=== PATIENT | male | born 1950 | race Two or more races ===

== ENCOUNTER 2020-03-29 05:00 | Day surgery (SDC) | payer OTHER | END 2020-03-29 09:35 | disposition home or self-care (01) | LOC: AMB-ENDOS 05:00 | PROVIDERS: ATTEND Colon & Rectal Surgery | DX: K62.4 Stenosis of anus and rectum (principal); K64.1 Second degree hemorrhoids; Z20.828 Contact with and (suspected) exposure to other viral communicable diseases ==

== ENCOUNTER 2020-04-08 09:46 | Inpatient (IN) | payer OTHER ==
[~2020-04-08] VITALS: Ht 170.2 cm; Wt 73.5 kg
[2020-04-08] MEDS ORDERED: LEVOTHYROXINE25 MCG (09:57)
[2020-04-08] MEDS ORDERED: ENALAPRIL MALEA10 MG (09:57)
[2020-04-11] MEDS ORDERED: MELOXICAM15 MG (16:28)
[2020-04-11] MEDS ORDERED: DORZOLAMIDE-TIM10 ML (16:28)
[2020-04-11] MEDS ORDERED: OMEPRAZOLE20 MG (16:28)
[2020-04-11] MEDS ORDERED: ATORVASTATIN CA20 MG (16:28)
[2020-04-11] MEDS ORDERED: LATANOPROST2.5 ML (16:29)
== END 2020-04-11 18:45 | disposition home or self-care (01) | DRG 379 ==
LOC: ER 09:46 → SURG 16:37 → SEC-K 16:37 → SURG 20:55
PROVIDERS: ADMIT Colon & Rectal Surgery; ATTEND Colon & Rectal Surgery
PROC: BW21YZZ Computerized Tomography (CT Scan) of Abdomen and Pelvis using Other Contrast (ICD-10-PCS; principal; 2020-04-08)
DX: K62.5 Hemorrhage of anus and rectum (principal); K62.4 Stenosis of anus and rectum

== ENCOUNTER 2021-03-28 10:45 | Inpatient (IN) | payer OTHER ==
[~2021-03-28] VITALS: Ht 170.2 cm; Wt 69.4 kg
[~2021-03-28 10:45] MED LIST: ATORVASTATIN CA20 MG; DORZOLAMIDE-TIM10 ML; ENALAPRIL MALEA10 MG; LATANOPROST2.5 ML; LEVOTHYROXINE25 MCG; MELOXICAM15 MG; OMEPRAZOLE20 MG
[2021-03-28] MEDS ORDERED: SYNTHROID112 MCG PO (13:01)
[2021-03-28] MEDS ORDERED: LIPITOR PO (13:01)
[2021-04-02] MEDS ORDERED: ATORVASTATIN CA20 MG (08:23)
[2021-04-02] MEDS ORDERED: TRAM1TAB98 (08:23)
[2021-04-02] MEDS ORDERED: DORZOLAMIDE-TIM10 ML (08:24)
[2021-04-02] MEDS ORDERED: DICLOFENAC SOD100 GM (08:24)
[2021-04-02] MEDS ORDERED: FERROUS SULFAT325 MG (08:24)
[2021-04-02] MEDS ORDERED: ALPHAGAN P5 M2 (08:24)
== END 2021-04-22 14:44 | disposition home or self-care (01) | DRG 654 ==
LOC: SURG 04-01 06:42 → O/R 04-01 06:42 → SURH 04-01 10:45 → SURG 04-01 17:47
PROVIDERS: ADMIT Colon & Rectal Surgery; ATTEND Colon & Rectal Surgery
PROC: 0DTN4ZZ Resection of Sigmoid Colon, Percutaneous Endoscopic Approach (ICD-10-PCS; 2021-04-01)
PROC: 0DTP4ZZ Resection of Rectum, Percutaneous Endoscopic Approach (ICD-10-PCS; 2021-04-01)
PROC: 0D1B4Z4 Bypass Ileum to Cutaneous, Percutaneous Endoscopic Approach (ICD-10-PCS; 2021-04-01)
PROC: 0DB84ZZ Excision of Small Intestine, Percutaneous Endoscopic Approach (ICD-10-PCS; 2021-04-01)
PROC: 0DNW4ZZ Release Peritoneum, Percutaneous Endoscopic Approach (ICD-10-PCS; 2021-04-01)
PROC: 0DN84ZZ Release Small Intestine, Percutaneous Endoscopic Approach (ICD-10-PCS; 2021-04-01)
PROC: 0DJD8ZZ Inspection of Lower Intestinal Tract, Via Natural or Artificial Opening Endoscopic (ICD-10-PCS; 2021-04-01)
PROC: 0TQB4ZZ Repair Bladder, Percutaneous Endoscopic Approach (ICD-10-PCS; principal; 2021-04-01 15:00)
PROC: 4A12X4Z Monitoring of Cardiac Electrical Activity, External Approach (ICD-10-PCS; 2021-04-04)
PROC: 02H633Z Insertion of Infusion Device into Right Atrium, Percutaneous Approach (ICD-10-PCS; 2021-04-04)
DX: N32.1 Vesicointestinal fistula (principal); N99.71 Accidental puncture and laceration of a genitourinary system organ or structure during a genitourinary system procedure; R65.10 Systemic inflammatory response syndrome (SIRS) of non-infectious origin without acute organ dysfunction; K56.7 Ileus, unspecified; I48.20 Chronic atrial fibrillation, unspecified; N17.8 Other acute kidney failure; K92.1 Melena; D64.9 Anemia, unspecified; R53.81 Other malaise; K66.0 Peritoneal adhesions (postprocedural) (postinfection); R41.82 Altered mental status, unspecified; N36.8 Other specified disorders of urethra; K62.4 Stenosis of anus and rectum; K57.30 Diverticulosis of large intestine without perforation or abscess without bleeding; E03.8 Other specified hypothyroidism; E78.5 Hyperlipidemia, unspecified

== ENCOUNTER 2021-09-05 07:39 | Outpatient (CLI) | payer OTHER ==
[~2021-09-05 07:39] MED LIST changes: +ALPHAGAN P5 M2; +DICLOFENAC SOD100 GM; +FERROUS SULFAT325 MG; +LIPITOR PO; +SYNTHROID112 MCG PO; +TRAM1TAB98
== END 2021-09-05 07:45 | disposition home or self-care (01) ==
LOC: RX STUDY 07:39
PROVIDERS: ATTEND Colon & Rectal Surgery
DX: K57.20 Diverticulitis of large intestine with perforation and abscess without bleeding (principal)

== ENCOUNTER → 2021-10-28 | Day surgery (SDC) | payer OTHER | END | disposition home or self-care (01) | LOC: ADM 10-24 13:45 → AMB-ENDOS 05:25 | PROVIDERS: ATTEND Colon & Rectal Surgery | DX: K57.30 Diverticulosis of large intestine without perforation or abscess without bleeding (principal); Z20.822 Contact with and (suspected) exposure to COVID-19; K62.4 Stenosis of anus and rectum; I10 Essential (primary) hypertension; E03.9 Hypothyroidism, unspecified ==

== ENCOUNTER 2021-12-11 07:59 | Outpatient (CLI) | payer OTHER ==
[~2021-12-11] VITALS: Ht 170.2 cm; Wt 69.4 kg
== END 2021-12-11 08:00 | disposition home or self-care (01) ==
LOC: LAB 07:59
PROVIDERS: ATTEND Colon & Rectal Surgery
DX: I10 Essential (primary) hypertension (principal); K57.30 Diverticulosis of large intestine without perforation or abscess without bleeding; K62.4 Stenosis of anus and rectum; K92.1 Melena

== ENCOUNTER 2021-12-12 12:00 | Inpatient (IN) | payer OTHER ==
[2021-12-18] MEDS ORDERED: COMBIGAN EYE DRO5 ML (08:10)
[2021-12-18] MEDS ORDERED: ELIQUIS5 MG (08:10)
[2021-12-18] MEDS ORDERED: LEVOTHYROXINE137 MCG (08:11)
== END 2021-12-22 11:52 | disposition home or self-care (01) | DRG 348 ==
LOC: SURH 12-17 09:31 → O/R 12-17 09:31 → SURH 12-17 10:15
PROVIDERS: ADMIT Colon & Rectal Surgery; ATTEND Colon & Rectal Surgery
PROC: 0DBB4ZZ Excision of Ileum, Percutaneous Endoscopic Approach (ICD-10-PCS; principal; 2021-12-17 10:15)
DX: Z43.2 Encounter for attention to ileostomy (principal); K92.1 Melena; K57.30 Diverticulosis of large intestine without perforation or abscess without bleeding; K62.4 Stenosis of anus and rectum; Z20.822 Contact with and (suspected) exposure to COVID-19

== ENCOUNTER 2023-09-29 06:24 | Day surgery (SDC) | payer OTHER ==
[~2023-09-29 06:24] MED LIST changes: +COMBIGAN EYE DRO5 ML; +ELIQUIS5 MG; +LEVOTHYROXINE137 MCG
[2023-09-29] MEDS ORDERED: ENALAPRILAT DIHYDRATE 2.5 MG/2 ML VIAL IV ONE ×2 (10:00→11:12)
[2023-09-29] MEDS ORDERED: fentaNYL CITRATE 50 MCG/ML AMPUL IV PUSH ONE (12:45)
[2023-09-29] MEDS ORDERED: MIDAZOLAM HCL 2 MG/2 ML VIAL IV ONE (12:45)
[2023-09-29] MEDS ORDERED: DIPHENHYDRAMINE HCL 50 MG/ML VIAL 1ML IV ONE (12:45)
== END 2023-09-29 11:05 | disposition home or self-care (01) ==
LOC: AMB-ENDOS 06:24
PROVIDERS: ATTEND Colon & Rectal Surgery
DX: K62.4 Stenosis of anus and rectum (principal); Z88.8 Allergy status to other drugs, medicaments and biological substances; K64.1 Second degree hemorrhoids

== ENCOUNTER 2024-02-16 05:45 | Day surgery (SDC) | payer OTHER ==
[2024-02-16] MEDS ORDERED: DIPHENHYDRAMINE HCL 50 MG/ML VIAL 1ML IV ONE (13:00)
[2024-02-16] MEDS ORDERED: fentaNYL CITRATE 50 MCG/ML AMPUL IV PUSH ONE (13:00)
[2024-02-16] MEDS ORDERED: MIDAZOLAM HCL 2 MG/2 ML VIAL IV ONE (13:00)
== END 2024-02-16 13:30 | disposition home or self-care (01) ==
LOC: AMB-ENDOS 05:45
PROVIDERS: ATTEND Colon & Rectal Surgery
DX: K62.4 Stenosis of anus and rectum (principal); K57.30 Diverticulosis of large intestine without perforation or abscess without bleeding; K92.1 Melena

== ENCOUNTER 2024-08-03 06:31 | Inpatient (IN) | payer OTHER ==
[~2024-08-03] VITALS: Ht 165.1 cm; Wt 71.2 kg
[2024-08-03] MEDS ORDERED: LIPITOR40 M1 PO (06:38)
[2024-08-03] MEDS ORDERED: SYNTHROID150 MCG PO (06:38)
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
--- NOTE | 2024-08-03 08:39 | NUR ---
SE RECIBE PTE ALERTA ORIENTADO X3.SE TED MUESTRAS DE LABORATORIO USANDO MEDIDAS ASEPTICAS.SE ORIENTA PTE SOBRE OBJETIVO DE [place] MEDICO.PTE MANEJA POR JAKOB FU.
[2024-08-03 08:59] LABS: HEMATOCRIT 39.3 % (39.0-48.0); HEMOGLOBIN 13.4 g/dL (13-16.00); MEAN CELL VOLUME 84.5 fL (80.0-100.00); MEAN CORPUSCULAR HEMOGLOBIN 28.7 pg (27.00-32.0); PLATELET COUNT 142 K/uL (150-450); RED BLOOD COUNT 4.65 M/uL (4.00-6.00); RED CELL DISTRIBUTION WIDTH 16.8 % (11.5-14.5)
[2024-08-03 09:47] LABS: PH,URINE 5.5 (5.0-8.0); URINE APPEARANCE Clear; URINE BILIRRUBIN Negative (NEGATIVE); URINE BLOOD Negative; URINE COLOR Yellow; URINE GLUCOSE Negative (NEGATIVE); URINE KETONE Negative (NEGATIVE); URINE LEUKOCYTE Negative; URINE NITRATE Negative; URINE PROTEIN Negative (NEGATIVE); URINE UROBILINOGEN 0.2 E.U./dl
[2024-08-03 09:50] LABS: URINE BACTERIA 6.1 uL (0.0-1933); URINE EPITHELIAL CELLS 2.3 uL (0.0-38.8); URINE WBC 2.5 uL (0.0-23.2)
[2024-08-03 09:51] LABS: CALCIUM 9.3 mg/dL (8.5-10.1); CREATININE SERUM 1.19 mg/dL (0.70-1.30); GFR 59.92; POTASSIUM 3.66 mEq/L (3.5-5.1)
[2024-08-03 10:25] LABS: URINE RBC 0.4 uL (0.0-20.8)
[2024-08-03 10:42] LABS: AMYLASE 96 U/L (25-115); LIPASE 49 U/L (13-75)
[2024-08-03] MEDS ORDERED: 0.9 % SODIUM CHLORIDE 1,000 ML IV SCH (18:30)
[2024-08-03] MEDS ORDERED: PIPERACILLIN/TAZOBACTAM SODIUM 3.375 GM in 0.9 % SODIUM CHLORIDE 100 ML IV SCH (18:32)
[2024-08-03] MEDS ORDERED: VANCOMYCIN HCL 1,000 MG VIAL IV SCH (18:32)
[2024-08-03] MEDS ORDERED: ACETAMINOPHEN 500 MG GEL..CAP PO PRN (18:45)
[2024-08-03] MEDS ORDERED: MEPERIDINE HCL/PF 25 MG/ML VIAL IM PRN (18:45)
[2024-08-03] MEDS ORDERED: VANCOMYCIN HCL 1,000 MG VIAL ONE (19:06)
[2024-08-03] MEDS ORDERED: PIPERACILLIN/TAZOBACTAM SODIUM 3.375 GM VIAL IV ONE (19:06)
[2024-08-03 20:20] LABS: INR 1.11; PARTIAL THROMBOPLASTIN TIME 25.4 SECONDS (22.0-34.0)
[2024-08-03 21:18] LABS: PH,URINE 5.5 (5.0-8.0); URINE APPEARANCE Clear; URINE BILIRRUBIN Negative (NEGATIVE); URINE BLOOD Negative; URINE COLOR Yellow; URINE GLUCOSE Negative (NEGATIVE); URINE KETONE Negative (NEGATIVE); URINE LEUKOCYTE Negative; URINE NITRATE Negative; URINE PROTEIN Negative (NEGATIVE); URINE UROBILINOGEN 0.2 E.U./dl
[2024-08-03 21:21] LABS: URINE BACTERIA 13.4 uL (0.0-1933); URINE EPITHELIAL CELLS 1.4 uL (0.0-38.8); URINE WBC 2.8 uL (0.0-23.2)
[2024-08-03 21:39] LABS: URINE RBC 1.3 uL (0.0-20.8)
[2024-08-04] VITALS: BP 152/83; O2SAT 99
[2024-08-04] MEDS ORDERED: LEVOTHYROXINE SODIUM 150 MCG TABLET PO SCH (06:00)
[2024-08-04] MEDS ORDERED: FAMOTIDINE/PF 20 MG in 0.9 % SODIUM CHLORIDE 8 ML IV PUSH SCH (09:00)
[2024-08-04] MEDS ORDERED: ATORVASTATIN CALCIUM 40 MG TABLET PO SCH (09:00)
[2024-08-04] MEDS ORDERED: VANCOMYCIN HCL 1,000 MG VIAL ONE (09:14)
[2024-08-04] MEDS ORDERED: HYDROGEN PEROXIDE 473 ML BOTTLE TOP ONE (12:06)
[2024-08-04] MEDS ORDERED: POVIDONE-IODINE 118 ML BOTT TOP ONE (12:06)
[2024-08-04] MEDS ORDERED: CHLORHEXIDINE GLUCONATE 120 ML BOTTLE TOP SCH (12:13)
[2024-08-04] MEDS ORDERED: hydrALAZINE HCL 20 MG VIAL ONE (13:36)
[2024-08-04] MEDS ORDERED: hydrALAZINE HCL 20 MG VIAL IV SCH (13:46)
[2024-08-04 16:30] VITALS: BP 119/81
[2024-08-04] MEDS ORDERED: BENZONATATE 200 MG CAPSULE PO SCH (17:00)
[2024-08-04] MEDS ORDERED: GUAIFENESIN/DEXTROMETHORPHAN 100MG/10ML BLIST.PACK PO SCH (17:00)
[2024-08-04] MEDS ORDERED: LACTOBACILLUS ACIDOPHILUS 1 CAP CAP PO SCH (17:00)
[2024-08-04] MEDS ORDERED: LINEZOLID IN DEXTROSE 5% 300 ML IV SCH (21:00)
[2024-08-04] MEDS ORDERED: HYDROCODONE/CHLORPHEN P-STIREX 5 ML ML PO SCH (21:00)
[2024-08-05 01:00] VITALS: BP 116/78; O2SAT 97
[2024-08-05 08:00] VITALS: BP 110/70; O2SAT 94
[2024-08-05 08:14] LABS: HEMATOCRIT 40.3 % (39.0-48.0); HEMOGLOBIN 13.2 g/dL (13-16.00); MEAN CELL VOLUME 85.6 fL (80.0-100.00); MEAN CORPUSCULAR HEMOGLOBIN 28.1 pg (27.00-32.0); MEAN CORPUSCULAR HGB CONC 32.8 g/dl (32.0-36.0); RED BLOOD COUNT 4.71 M/uL (4.00-6.00); RED CELL DISTRIBUTION WIDTH 15.9 % (11.5-14.5)
[2024-08-05 08:16] LABS: PLATELET COUNT 115 K/uL (150-450)
[2024-08-05 08:19] LABS: ERYTHROCYTE SEDIMENTATION RATE 44 mm/hr
[2024-08-05 08:39] LABS: ALBUMIN 2.4 gm/dL (3.4-5.0); BILIRUBIN TOTAL 1.52 mg/dL (0.3-1.2); CALCIUM 8.1 mg/dL (8.5-10.1); CREATININE SERUM 1.28 mg/dL (0.70-1.30); GFR 55.09; GLOBULINA 2.7 G/DL (2.4-3.5); POTASSIUM 4.61 mEq/L (3.5-5.1); TOTAL PROTEIN 5.1 gm/dL (6.4-8.2)
[2024-08-05 08:40] LABS: C-REACTIVE PROTEIN 14.1 MG/DL (0.00-0.29)
[2024-08-05 16:06] VITALS: BP 115/82; O2SAT 96
[2024-08-06 00:53] VITALS: BP 118/78; O2SAT 97
[2024-08-06 07:48] LABS: HEMATOCRIT 37.5 % (39.0-48.0); HEMOGLOBIN 12.5 g/dL (13-16.00); MEAN CELL VOLUME 85.8 fL (80.0-100.00); MEAN CORPUSCULAR HEMOGLOBIN 28.6 pg (27.00-32.0); MEAN CORPUSCULAR HGB CONC 33.3 g/dl (32.0-36.0); RED BLOOD COUNT 4.37 M/uL (4.00-6.00); RED CELL DISTRIBUTION WIDTH 16.1 % (11.5-14.5)
[2024-08-06 08:00] VITALS: BP 123/80; O2SAT 95
[2024-08-06 08:04] LABS: CALCIUM 7.8 mg/dL (8.5-10.1); CREATININE SERUM 1.19 mg/dL (0.70-1.30); GFR 59.92; MAGNESIUM 1.9 mg/dL (1.8-2.4); PHOSPHOROUS 2.3 mg/dL (2.5-4.9); POTASSIUM 4.05 mEq/L (3.5-5.1)
[2024-08-06 08:24] LABS: PLATELET COUNT 125 K/uL (150-450)
[2024-08-06 08:59] LABS: MANUAL PLATELET COUNT 140
[2024-08-06] MEDS ORDERED: ENOXAPARIN SODIUM 40 MG/0.4 ML SYRINGE SUBCUTANEO SCH (09:00)
[2024-08-06 16:35] VITALS: BP 144/82; O2SAT 94
[2024-08-07] VITALS: BP 131/79; O2SAT 97
[2024-08-07 08:27] VITALS: BP 136/77; O2SAT 95
[2024-08-07 17:00] VITALS: BP 148/80; O2SAT 97
[2024-08-08 00:30] VITALS: BP 148/83; O2SAT 98
[2024-08-08 07:05] LABS: HEMATOCRIT 36.6 % (39.0-48.0); HEMOGLOBIN 12.5 g/dL (13-16.00); MEAN CELL VOLUME 84.8 fL (80.0-100.00); MEAN CORPUSCULAR HGB CONC 34.2 g/dl (32.0-36.0); PLATELET COUNT 161 K/uL (150-450); RED BLOOD COUNT 4.32 M/uL (4.00-6.00)
[2024-08-08 07:44] LABS: CALCIUM 7.9 mg/dL (8.5-10.1); CREATININE SERUM 1.27 mg/dL (0.70-1.30); GFR 55.59; MAGNESIUM 1.8 mg/dL (1.8-2.4); PHOSPHOROUS 2.4 mg/dL (2.5-4.9); POTASSIUM 4.27 mEq/L (3.5-5.1)
[2024-08-08 07:48] LABS: C-REACTIVE PROTEIN 5.75 MG/DL (0.00-0.29)
[2024-08-08 08:00] VITALS: BP 135/79; O2SAT 97
[2024-08-08 09:11] LABS: MANUAL PLATELET COUNT 212
[2024-08-08 16:00] VITALS: BP 134/82; O2SAT 96
[2024-08-08 23:59] VITALS: BP 143/86; O2SAT 100
[2024-08-09 08:00] VITALS: BP 114/72; O2SAT 96
[2024-08-09 16:00] VITALS: BP 127/82; O2SAT 96
[2024-08-10 00:44] VITALS: BP 117/75; O2SAT 96
[2024-08-10 08:00] VITALS: BP 117/73; O2SAT 96
[2024-08-10] MEDS ORDERED: FAMOtidine 20 MG TABLET PO SCH (09:00)
[2024-08-10 16:00] VITALS: BP 149/78; O2SAT 96
[2024-08-10] MEDS ORDERED: LEVOFLOXACIN750 MG PO (16:33)
[2024-08-10] MEDS ORDERED: INTESTINEX680 M1 PO (16:33)
== END 2024-08-10 21:25 | disposition home or self-care (01) | DRG 854 ==
LOC: ER 06:34 → SURH 19:02 → SURG 19:02 → SURH 08-04 12:51
PROVIDERS: Emergency Medicine; General Practice; Internal Medicine Geriatric Medicine; ADMIT Internal Medicine; ATTEND Internal Medicine
PROC: BW21YZZ Computerized Tomography (CT Scan) of Abdomen and Pelvis using Other Contrast (ICD-10-PCS; 2024-08-03)
PROC: 0W9F0ZZ Drainage of Abdominal Wall, Open Approach (ICD-10-PCS; principal; 2024-08-05)
PROC: 0JB80ZZ Excision of Abdomen Subcutaneous Tissue and Fascia, Open Approach (ICD-10-PCS; 2024-08-05)
DX: A41.9 Sepsis, unspecified organism (principal); L02.211 Cutaneous abscess of abdominal wall; L03.311 Cellulitis of abdominal wall; S30.1XXA Contusion of abdominal wall, initial encounter; K43.9 Ventral hernia without obstruction or gangrene; I10 Essential (primary) hypertension; E03.9 Hypothyroidism, unspecified; E78.5 Hyperlipidemia, unspecified; B96.4 Proteus (mirabilis) (morganii) as the cause of diseases classified elsewhere; V19.9XXA Pedal cyclist (driver) (passenger) injured in unspecified traffic accident, initial encounter; Y92.9 Unspecified place or not applicable; Z72.0 Tobacco use

== ENCOUNTER 2024-08-31 09:27 | Outpatient (CLI) | payer OTHER ==
[~2024-08-31 09:27] MED LIST changes: +INTESTINEX680 M1 PO; +LEVOFLOXACIN750 MG PO; +LIPITOR40 M1 PO; +SYNTHROID150 MCG PO
== END 2024-08-31 09:31 | disposition home or self-care (01) ==
LOC: TOM 09:27
DX: K43.9 Ventral hernia without obstruction or gangrene (principal)
CPT/HCPCS: 74177; Q9965

== ENCOUNTER 2025-04-11 22:56 | Inpatient (IN) | payer OTHER ==
[~2025-04-11] VITALS: Ht 175.3 cm; Wt 79.4 kg
[2025-04-12] MEDS ORDERED: PROMETHAZINE HCL 50 MG/ML AMPUL IM STA (00:23)
[2025-04-12] MEDS ORDERED: MORPHINE SULFATE 4 MG/ML CARTRIDGE IV STA (00:24)
[2025-04-12] MEDS ORDERED: 0.9 % SODIUM CHLORIDE 1,000 ML IV ONE (00:30)
[2025-04-12] MEDS ORDERED: PROMETHAZINE HCL 50 MG/ML AMPUL IM ONE (01:01)
[2025-04-12 01:40] LABS: BASO % 0.3 % (0.1-1.2); EOS # 0.10 (0.04-0.54); EOS % 0.4 % (0.7-7.0); LYMPH # 1.18 (1.18-3.74); LYMPH % 4.9 % (19.3-53.1); MEAN PLATELET VOLUME 11.00 fl (9.4-12.4); MONO # 1.66 (0.24-0.82); MONO % 7.0 % (4.7-12.5); NEUT # 20.73 (1.56-6.13); NEUT % 86.8 % (34.0-71.1); RED CELL DISTRIBUTION WIDTH 14.6 % (11.6-14.4)
[2025-04-12 01:56] LABS: INR 1.11
[2025-04-12 02:22] LABS: URINE APPEARANCE Clear; URINE BILIRRUBIN Negative (NEGATIVE); URINE BLOOD Negative; URINE COLOR Yellow; URINE GLUCOSE Negative (NEGATIVE); URINE KETONE Negative (NEGATIVE); URINE LEUKOCYTE Negative; URINE NITRATE Negative; URINE PROTEIN Negative (NEGATIVE); URINE UROBILINOGEN 0.2 E.U./dl
[2025-04-12 02:26] LABS: URINE BACTERIA 20.3 uL (0.0-1933); URINE EPITHELIAL CELLS 2.9 uL (0.0-38.8); URINE RBC 2.6 uL (0.0-20.8); URINE WBC 2.2 uL (0.0-23.2)
[2025-04-12 02:31] LABS: ALT/SGPT 24.0 U/L (12-78); AST/SGOT 25.0 U/L (15-37); BILIRUBIN TOTAL 0.88 mg/dL (0.3-1.2); BILIRUBIN,CONJUGATED 0.22 mg/dL (0.0-0.2); BUN CREA RATIO 19.0 (7.0-25.0); CREATININE SERUM 1.47 mg/dL (0.70-1.30); GFR 46.83; GLOBULINA 3.1 G/DL (2.4-3.5); GLUCOSE FASTING 132.0 mg/dL (65-100); OSMOLALITY SERUM 290.0 MOSM/KG (275-295)
[2025-04-12 03:09] LABS: URINE CAST 0.29 uL (0.0-1.40)
[2025-04-12] MEDS ORDERED: PIPERACILLIN/TAZOBACTAM SODIUM 3.375 GM in 0.9 % SODIUM CHLORIDE 100 ML IV SCH ×2 (03:23→14:57)
[2025-04-12] MEDS ORDERED: PIPERACILLIN/TAZOBACTAM SODIUM 3.375 GM VIAL IV ONE (04:10)
[2025-04-12] MEDS ORDERED: ATORVASTATIN CALCIUM 40 MG TABLET PO SCH (14:59)
[2025-04-12] MEDS ORDERED: MORPHINE SULFATE 2 MG/ML SYRINGE IV PRN (15:00)
[2025-04-12] MEDS ORDERED: RINGERS SOLUTION,LACTATED 1,000 ML IV SCH (15:00)
[2025-04-12] MEDS ORDERED: ONDANSETRON HCL 4 MG in 0.9 % SODIUM CHLORIDE 50 ML IV PRN (15:00)
[2025-04-12] MEDS ORDERED: hydrALAZINE HCL 20 MG VIAL IV PRN (15:15)
[2025-04-12 18:00] VITALS: BP 128/74; O2SAT 97
[2025-04-12 18:13] VITALS: BP 174/57
[2025-04-13 01:13] VITALS: BP 117/78; O2SAT 98
[2025-04-13] MEDS ORDERED: LEVOTHYROXINE SODIUM 150 MCG TABLET PO SCH (06:00)
[2025-04-13 08:00] VITALS: BP 129/76; O2SAT 97
[2025-04-13 16:00] VITALS: BP 123/71; O2SAT 95
[2025-04-14 01:18] VITALS: BP 122/81; O2SAT 97
[2025-04-14 08:53] VITALS: BP 133/76; O2SAT 95
[2025-04-14 10:47] LABS: BASO % 0.6 % (0.1-1.2); EOS # 0.24 (0.04-0.54); EOS % 3.0 % (0.7-7.0); LYMPH # 1.20 (1.18-3.74); LYMPH % 15.2 % (19.3-53.1); MEAN PLATELET VOLUME 11.60 fl (9.4-12.4); MONO # 0.98 (0.24-0.82); NEUT # 5.40 (1.56-6.13); NEUT % 68.3 % (34.0-71.1); RED CELL DISTRIBUTION WIDTH 14.5 % (11.6-14.4)
[2025-04-14 10:49] LABS: MONO % 12.4 % (4.7-12.5)
[2025-04-14 11:06] LABS: BUN CREA RATIO 13.0 (7.0-25.0); CREATININE SERUM 1.42 mg/dL (0.70-1.30); GFR 48.73; GLUCOSE FASTING 116.0 mg/dL (65-100); OSMOLALITY SERUM 293.0 MOSM/KG (275-295)
[2025-04-14 16:00] VITALS: BP 154/90; O2SAT 97
[2025-04-15 00:15] VITALS: BP 164/91; O2SAT 95
[2025-04-15 08:17] VITALS: BP 135/86; O2SAT 95
[2025-04-15] MEDS ORDERED: HYDRALAZIN20 MG/1 ML IV (12:00)
[2025-04-15] MEDS ORDERED: LEVOTHYROXINE150 MCG PO (12:00)
[2025-04-15] MEDS ORDERED: LIPITOR40 M1 PO (12:00)
== END 2025-04-15 13:03 | disposition home or self-care (01) | DRG 390 ==
LOC: ER 22:56 → SURH 04-12 17:21 → SEC-K 04-12 17:21 → SURH 04-12 18:42
PROVIDERS: General Practice; Internal Medicine; ADMIT Internal Medicine; ATTEND Internal Medicine
PROC: BW21YZZ Computerized Tomography (CT Scan) of Abdomen and Pelvis using Other Contrast (ICD-10-PCS; principal; 2025-04-12)
PROC: 4A12X4Z Monitoring of Cardiac Electrical Activity, External Approach (ICD-10-PCS; 2025-04-13)
DX: K56.699 Other intestinal obstruction unspecified as to partial versus complete obstruction (principal); D72.828 Other elevated white blood cell count; K43.2 Incisional hernia without obstruction or gangrene